=== PATIENT | male | born 1980 | race Caucasian/White ===

== ENCOUNTER → 2020-08-22 | Day surgery (SDC) | payer BC ==
[~2020-08-22] MED LIST: ADVIL200 M3 PO; NORCO5 PO; TYLENOL 8 HOUR650 MG PO
--- NOTE | ~2020-08-22 | OP ---
[address] [address] OPERATIVE REPORT Name: ADDI RODRIGUEZ [facility] [id number] Admission: 08/22/20 Attend Phys: Jostin Sanchez Discharge: Date of : 82 Report #: [id number] THIS REPORT FOR: cc: Andi Badillo Vincent R. DO Patterson,Jostin Canseco MD ~ DOC #: [id number] Jostin Sanchez MD DATE OF SURGERY: 08/22/2020 PREOPERATIVE DIAGNOSIS: Incarcerated ventral hernia. POSTOPERATIVE DIAGNOSIS: Incarcerated ventral hernia. OPERATION: Laparoscopic repair of incarcerated ventral hernia with mesh. SURGEON: Jostin Sanchez MD ANESTHESIA: General. ESTIMATED BLOOD LOSS: Minimal. SPECIMENS: None. DESCRIPTION OF PROCEDURE: After informed consent was obtained, the patient was brought to the operating room and placed supine. SCDs were placed and working, preoperative antibiotics were administered, general anesthesia was induced. The abdomen was prepped and draped in the usual sterile fashion. A 5 mm incision was made in the left upper quadrant. A 5 mm trocar was placed under direct vision. Pneumoperitoneum was established. An 8 mm left-sided trocar was placed. A 5 mm right-sided trocar was placed. He had incarcerated preperitoneal fat into a small hernia defect right above the umbilicus. This was all reduced. The defect measured approximately 1 cm. Therefore, an [address] mesh was inserted. It was brought up to the abdominal wall and tacked with 30 absorbable tacks. A transfascial 2-0 Ethibond suture was placed using a PMI suture passer. The ports were then removed under direct vision. The skin was closed with 4-0 Monocryl. Incisions were dressed with Steri-Strips. COMPLICATIONS: None. DISPOSITION: The patient was taken to recovery in satisfactory condition. Jostin Sanchez MD [facility] [address] OPERATIVE REPORT Name: ADDI RODRIGUEZ Room: [facility]#: [id number] Admission: 08/22/20 Attend Phys: Jostin Sanchez Discharge: Date of : 82 Report #: [id number] By: [id number] Sanchez MD /nt
== END | disposition home or self-care (01) ==
LOC: M.SUR 07:38
PROVIDERS: ATTEND Surgery
DX: K43.6 Other and unspecified ventral hernia with obstruction, without gangrene (principal); Z98.890 Other specified postprocedural states; Z79.899 Other long term (current) drug therapy